=== PATIENT | female | born 1990 | race Caucasian/White ===

== ENCOUNTER 2022-10-05 05:57 | Inpatient (IN) ==
--- NOTE | 2022-09-28 12:26 | Anesthesiology Consultation ---
Date of Service September 28, 2022 Assessment & Plan (1) Encounter for pre-operative examination: Infectious disease screening: Per assessment on 09/28: No known infectious disease contacts or current infectious disease symptoms. 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 History Surgery Operation Date: 10/05/22 08:00 Proposed Procedures p Section in LD - Daniella Mendez MD, PhD s Bilateral Tubal Ligation - Daniella Mendez MD, PhD Height/Weight Height: 4 ft 11 in Weight: 71.214 kg Allergies Allergy/AdvReac Type Severity Reaction Status Date / Time No Known Allergies Allergy Unverified 09/28/22 08:53 Medications Home Medications Medication Instructions Recorded Confirmed Last Taken sertraline 50 mg tablet (Zoloft) 50 mg PO HS 09/28/22 09/28/22 Unknown Past Medical History Medical History (Updated 09/28/22 @ 12:24 by Lidia Michelle) Anemia During Received most recent iron infusion 08/2022 Depression Past Family History Family History Other No family history of adverse response to anesthesia Past Surgical History Surgical History Hx of section Social History Smoking Status: Former smoker Smoking cigarettes per day: quit 9 mos ago Do You Dip or Chew Tobacco: No Hx Alcohol Use: No Hx Substance Use: Yes (Hx marijuana use, last use 04/2022) substance use type: does not use
[2022-10-05] MEDS ORDERED: LIDOCAINE 1% LOCAL 20 ML VIAL INFIL PRN (06:03)
[2022-10-05] MEDS ORDERED: ceFAZolin 2000MG 2,000 MG/15 ML SYR IV STA (06:03)
[2022-10-05] MEDS ORDERED: OXYTOCIN 30 UNITS/500 ML BAG IV PRN (06:03)
[2022-10-05] MEDS: LACTATED RINGER'S 1,000 ML IV PRN ×2 (06:10→07:26)
[2022-10-05 06:37] LABS: Mean Corpuscular Hemoglobin 30.2 pg (25.0-34.0); Mean Corpuscular Hgb Conc 35.3 g/dL (32.0-36.0); Mean Corpuscular Volume 85.6 fL (80.0-100.0); Mean Platelet Volume 11.3 fL (9.4-12.4); Platelet Count 203 K/uL (130-400); RDW Coefficient of Variation 13.5 % (11.5-14.5); RDW Standard Deviation 42.4 fL (36.4-46.3); Red Blood Count 3.97 M/uL (4.20-5.40); White Blood Count 8.81 K/ul (4.8-10.8)
[2022-10-05] MEDS ORDERED: MoRPHine SULFATE PF 1 MG/ML 10 ML AMP/VIAL ONE (07:49)
--- NOTE | 2022-10-05 07:54 | Discharge Summary ---
Date of Service October 05, 2022 Admission HPI Per Admitting Provider Patient is a 31-year-old -0-0-1 at 39 weeks for elective repeat and desires sterilization. Discharge Data Consultations 10/05/22 06:03 Consult Anesthesiology Stat Procedures Performed Operation Date: 10/05/22 08:00 primary LTCS,bilateral salpingectomy Hospital Course (1) delivery delivered: POD #2 pt dong well d/c home with instruction
--- NOTE | 2022-10-05 07:54 | History & Physical Bridge Note ---
Date of Service October 05, 2022 History & Physical Bridge Note I have examined the patient, reviewed the History & Physical and in the interval since the performance of the History & Physical I have noted the following changes of clinical significance: Stopped her zoloft, hasnt taken her PNV in 1 week (after she ran out)
[2022-10-05] MEDS ORDERED: CITRIC ACID/SODIUM CITRATE 15 ML UDC ONE (08:03)
[2022-10-05] MEDS ORDERED: OXYTOCIN 10 UNITS/ML VIAL ONE (08:39)
[2022-10-05] MEDS ORDERED: fentaNYL citrate PF 100 MCG/2 ML VIAL ONE (08:39)
[2022-10-05] MEDS ORDERED: PROMETHAZINE HCL 12.5 MG in SODIUM CHLORIDE 0.9% 50 ML IV PRN (08:51)
[2022-10-05] MEDS ORDERED: HYDROmorphone INJ 0.5 MG/0.5 ML SYR IV PRN (08:51)
[2022-10-05] MEDS ORDERED: NALBUPHINE HCL INJ 10 MG/ML AMP IV PRN (08:51)
[2022-10-05] MEDS ORDERED: MEPERIDINE HCL 25 MG/ML CARP/VIAL IV PRN (08:51)
[2022-10-05] MEDS ORDERED: diphenhydrAMINE 50 MG/ML VIAL IV PRN (08:51)
[2022-10-05] MEDS ORDERED: MoRPHine SULFATE PF 1 MG/ML 10 ML AMP/VIAL INT SPINAL ONE (08:51)
[2022-10-05] MEDS ORDERED: NALOXONE HCL 1 MG in SODIUM CHLORIDE 0.9% 1000ML 1,000 ML IV PRN (08:51)
[2022-10-05] MEDS ORDERED: ePHEDrine sulfate 50 MG/ML AMP IV PRN (08:51)
[2022-10-05] MEDS ORDERED: LACTATED RINGER'S 500 ML IV PRN (08:51)
[2022-10-05] MEDS ORDERED: NALOXONE HCL 0.08 MG in SYRINGE 1.8 ML IV PRN (08:51)
[2022-10-05] MEDS ORDERED: NALOXONE HCL 0.4 MG/1 ML VIAL/CARP IV PRN (08:51)
[2022-10-05] MEDS ORDERED: METOCLOPRAMIDE HCL 10 MG in SODIUM CHLORIDE 0.9% 50 ML IV PRN (08:51)
[2022-10-05] MEDS ORDERED: ePHEDrine sulfate 50 MG/ML SYR ONE (08:58)
[2022-10-05] MEDS: OXYTOCIN 20 UNITS in LACTATED RINGER'S 1,000 ML IV SCH ×2 (09:00→17:09)
[2022-10-05] MEDS ORDERED: MAGNESIUM HYDROXIDE SUSP 30 ML UDC PO PRN (09:00)
[2022-10-05] MEDS ORDERED: SENNA 8.6 MG TAB PO PRN (09:00)
[2022-10-05] MEDS ORDERED: DC INTRASPINAL MORPHINE SCH (09:00)
[2022-10-05] MEDS ORDERED: HYDROCORTISONE ACETATE 25 MG SUPP PR PRN (09:00)
[2022-10-05] MEDS ORDERED: LACTATED RINGER'S 1,000 ML IV SCH (09:00)
[2022-10-05] MEDS ORDERED: SODIUM CHLORIDE 0.9% 1000ML 1,000 ML IV SCH (09:00)
[2022-10-05] MEDS ORDERED: DIPHTHERIA/TETANUS/PERTUSSIS Vaccine (Tdap, Age 7+yrs) 0.5mL SYR/VL IM ONE (09:00)
[2022-10-05] MEDS ORDERED: NO NARCOTICS OR SEDATIVES SCH (09:00)
[2022-10-05] MEDS ORDERED: BENZOCAINE 20% SPRY 85 APPLN/85 GM CAN EXT PRN (09:00)
[2022-10-05] MEDS ORDERED: FAMOTIDINE 20 MG TAB PO PRN (09:06)
--- NOTE | 2022-10-05 09:07 | Operative Report ---
Post Operative Report Pre & Post Diagnosis Operation Date: 10/05/22 08:00 Pre-Op Diagnosis: 1: term 2: previous section, desires repeat 3: desires bilateral tubal ligation Post-Op Diagnosis: Same I identified the patient and participated in the time-out.: Yes Procedure Operation Date: 10/05/22 08:00 Primary lower transverse delivery via Pfannenstiel incision, bilateral salpingectomy Surgeon Daniella Mendez MD, PhD Missile Pad Mechanic Johanna Hart PA-C Estimated Blood Loss 700 Findings Consistent with Post-Op Diagnosis Liveborn female at 0834 nuchal x1 Apgars 8/9. Intact placenta with three-vessel cord. Cord pH not obtained. Weight 2575 g Fluids See anesthesia record Specimens Placenta Bilateral fallopian tubes, left tube tagged Drains Galindo catheter Anesthesia Type Spinal Complications None Disposition Accompanied Patient To Recovery: No Indications Desires elective repeat delivery, desires sterilization Description of Procedure section was recommended. Risks, benefits and alternatives were discussed including but not limited to infection, bleeding that may require blood products or hysterectomy for life saving measures, injury to surrounding organs including but not limited to bowel, bladder, ureters, tubes and ovaries and/or the baby. Should injury occur it could require longer/additional surgery to repair. Patient was also counselled about risk of DVT/PE, and injury to infant during delivery. Additional risk of regret, failure including ectopic were also discussed with patient. The patient stated understanding and desired to proceed. All questions were answered posed by patient. Prior to being taken to the OR, 2 grams of cefazolin IV was administered. The patient was taken to the operating room where regional anesthesia was found to be adequate. Prior to monitors being removed FHR was bpm with no decelerations. She was then prepared and draped in the usual sterile fashion in the dorsal supine position with a leftward tilt displacing the uterus. Galindo was draining to gravity. SCDs were on bilateral lower extremities. A pfannenstiel skin incision was then made with the scalpel and carried through to the underlying layer of fascia. The fascia was incised in the midline and the incision extended laterally with the Villarreal scissors. The superior aspect of the facial incision was then grasped with the Kaycee clamps, elevated and the underlying rectus muscles dissected off bluntly. Attention was then turned to the inferior aspect of this incision which in a similar fashion was grasped, elevated with the Kaycee clamps and the rectus muscle dissected off bluntly. The rectus muscles were in the midline. The peritoneum identified, grasped with the pick-ups and entered sharply with the Metzenbaum scissors. The peritoneal incision was then extended superiorly and inferiorly with good visualization of the bladder. The bladder blade was inserted and the vesicouterine peritoneum was identified, grasped with the pick-ups, and entered sharply with Metzenbaum scissors. This incision was then extended laterally and the bladder flap created digitally and the bladder blade was reinserted. The lower uterine segment was identified and incised in a transverse fashion with the scalpel. The uterine incision was then extended bluntly laterally. Artificial rupture of membranes demonstrated clear fluid. The bladder blade was removed. The fetus was in cephalic presentation. The 's head delivered atraumatically. The anterior shoulders were delivered followed by the posterior shoulders then the remainder of the body. The infant's mouth and nose were bulb suctioned. The umbilical cord was clamped times two and cut. The infant was handed off to the awaiting peds staff. A female was delivered weighing 2575g g with APGARS of 8 at 1 minute and 9 at 5 minutes. The infant was taken to the recovery room for transition. Cord blood gases were obtained. The placenta was removed with gentle traction. 30 units of oxytocin were added to IVF and allowed to run freely. The uterus was exteriorized and cleared of all clots and debris. The uterine incision was inspected and found to be without any extensions and was repaired with 0 Vicryl in a running, locked fashion. A second imbricating layer was performed. Upon inspection, the repaired hysterotomy was found to be hemostatic. Attention was then placed to patient's right fallopian tube and it was followed out to the fimbriated end, and [place] clamps were placed on the fallopian tube. LigaSure device was used to coagulate and cut the right fallopian tube, along the mesosalpinx and cut across the cornual region. Good hemostasis was noted. The same was then performed on the patient's left fallopian tube. Bilateral fallopian tubes were then sent to pathology, left tube was tagged. The uterus was firm and returned to the abdomen. The gutters were cleared of all clots and debris. Jessica powder was placed on the hysterotomy. The fascia was reapproximated with 0 Vicryl in a running fashion. The subcutaneous layer was closed with 2-0 Vicryl in a running fashion. The skin was closed in a subcuticular fashion with 4-0 vicryl. Dermabond and pressure bandage was applied over incision. The patient tolerated the procedure well. Sponge, lap and needle counts were correct x4. The patient was taken to the recovery room in stable condition. Attestation: My Missile Pad Mechanic was necessary throughout the procedure(s) for tissue retraction I understand that section 1842 (b)(7)(D) of the Social Security Act generally prohibits Medicare physician fee schedule payment for the services of [id number] in teaching hospitals when qualified residents are available to furnish such services. I certify that the services for which payment is claimed were medically necessary, and that no qualified resident was available to perform the services. I further understand that these services are subject to post-payment review by the Medicare carrier. I attest to the content of the Intraoperative Record and any orders documented therein. Any exceptions are noted below.
[2022-10-05] MEDS: ONDANSETRON INJ 2 MG/ML 2 ML VIAL IV PRN ×2 (09:21→15:36)
[2022-10-05] MEDS ORDERED: ARISTA ABSORBABLE HEMOSTAT 3GM TOP ONE (09:26)
[2022-10-05] MEDS: KETOROLAC 30 MG/ML VIAL IV PRN ×3 (09:45→21:12)
--- NOTE | 2022-10-05 10:37 | Anesthesiology Progress Note ---
Date of Service October 05, 2022 Anesthesia Post Procedure Vital Signs Vital Signs: Temp Pulse Resp BP Pulse Ox 10/05/22 09:55 18 10/05/22 09:45 18 10/05/22 09:35 18 10/05/22 09:25 18 10/05/22 09:15 18 10/05/22 09:05 36.5 C 16 10/05/22 07:33 37.1 C 18 10/05/22 10:35 76 10/05/22 10:30 99 10/05/22 10:30 62 10/05/22 10:25 98 10/05/22 10:25 64 10/05/22 10:22 57 L 10/05/22 10:22 97/51 L 10/05/22 10:20 98 10/05/22 10:20 65 10/05/22 10:15 97 10/05/22 10:15 60 10/05/22 10:10 97 10/05/22 10:10 59 L 10/05/22 10:08 91 10/05/22 10:08 73 10/05/22 10:05 99 10/05/22 10:05 65 10/05/22 10:00 99 10/05/22 10:00 61 10/05/22 09:57 78 10/05/22 09:57 120/55 L 10/05/22 09:55 100 10/05/22 09:55 60 10/05/22 09:50 99 10/05/22 09:50 61 10/05/22 09:46 56 L 10/05/22 09:46 96/53 L 10/05/22 09:45 99 10/05/22 09:45 69 10/05/22 09:40 100 10/05/22 09:40 74 10/05/22 09:35 100 10/05/22 09:35 77 10/05/22 09:36 65 10/05/22 09:36 104/59 L 10/05/22 09:30 100 10/05/22 09:30 73 10/05/22 09:26 74 10/05/22 09:26 116/60 10/05/22 09:25 100 10/05/22 09:25 79 10/05/22 09:20 100 10/05/22 09:20 95 H 10/05/22 09:17 133 H 10/05/22 09:17 129/72 10/05/22 09:15 100 10/05/22 09:15 132 H 10/05/22 09:10 100 10/05/22 09:10 84 10/05/22 09:05 100 10/05/22 09:05 77 10/05/22 09:06 79 10/05/22 09:06 113/64 10/05/22 06:11 93 H 123/73 Pain Intensity Abdomen: Pain Intensity: 4 Transfer of Care Handoff Completed per policy Notes Mental Status: alert / awake / arousable and participated in evaluation Nausea / Vomiting: adequately controlled Pain: adequately controlled Airway Patency, RR, SpO2: stable & adequate BP & HR: stable & adequate Hydration State: stable & adequate Neuraxial Anesthesia: was administered and sensory block is resolving Anesthetic Complications: no major complications apparent and Pt Satisfied with anesthetic care
[2022-10-05] MEDS ORDERED: LACTATED RINGER'S 1,000 ML IV ONE ×2 (11:26→13:58)
[2022-10-05] MEDS: SIMETHICONE 80 MG CHEW PO SCH ×3 (13:33→21:12)
[2022-10-05 14:48] LABS: Basophils # (auto) 0.02 K/uL (0.00-0.20); Basophils % (auto) 0.2 %; Eosinophils # (auto) 0.01 K/uL (0.00-0.50); Eosinophils % (auto) 0.1 %; Hematocrit (blood only) 30.9 % (37.0-47.0); Hemoglobin 10.8 g/dl (12.0-16.0); Immature Granulocytes # (auto) 0.06 K/uL (0.01-0.20); Immature Granulocytes % (auto) 0.5 %; Lymphocytes # (auto) 1.08 K/uL (1.20-3.40); Lymphocytes % (auto) 8.4 %; Mean Corpuscular Hemoglobin 30.5 pg (25.0-34.0); Mean Corpuscular Volume 87.3 fL (80.0-100.0); Mean Platelet Volume 11.5 fL (9.4-12.4); Monocytes # (auto) 0.71 K/uL (0.11-0.59); Monocytes % (auto) 5.5 %; Neutrophils # (auto) 11.05 K/uL (1.40-6.50); Neutrophils % (auto) 85.3 %; Platelet Count 167 K/uL (130-400); RDW Coefficient of Variation 13.5 % (11.5-14.5); RDW Standard Deviation 43.1 fL (36.4-46.3); Red Blood Count 3.54 M/uL (4.20-5.40); White Blood Count 12.93 K/ul (4.8-10.8)
[2022-10-05 15:06] LABS: Albumin Globulin Ratio 1.8 (0.9-2); Albumin Level 3.1 gm/dl (3.4-5.0); BUN Creatinine Ratio 11.1 (10-20); Bilirubin,Total 0.4 mg/dl (0.2-1.0); Calcium 8.4 mg/dl (8.6-10.3); Creatinine Clr Calc Pharmacy 112.1 ml/min; Est GFR (African American) 139.5 ml/min; Est GFR (Non-African American) 120.4 ml/min; Globulin 1.7 gm/dl (2.5-4.0); Potassium 3.7 mmol/L (3.5-5.1); Total Protein 4.8 gm/dl (6.0-8.3)
[2022-10-05] MEDS: DOCUSATE SODIUM 100 MG CAP PO SCH (21:12)
[2022-10-05] MEDS: SERTRALINE HCL 50 MG TABLET PO SCH (21:13)
[2022-10-06] MEDS ORDERED: PROMETHAZINE HCL 25 MG in SODIUM CHLORIDE 0.9% 50 ML IV PRN (02:52)
[2022-10-06] MEDS ORDERED: diphenhydrAMINE Capsule 25 MG CAP PO PRN (02:52)
[2022-10-06] MEDS ORDERED: ONDANSETRON INJ 2 MG/ML 2 ML VIAL IV PRN (02:52)
[2022-10-06] MEDS ORDERED: diphenhydrAMINE 50 MG/ML VIAL IV PRN (02:52)
[2022-10-06] MEDS ORDERED: MEPERIDINE HCL 50 MG/ML CARP IV PRN (02:52)
[2022-10-06] MEDS ORDERED: KETOROLAC 30 MG/ML VIAL IV PRN (02:52)
[2022-10-06] MEDS: oxyCODONE/ACETAMINOPHEN 5mg/325mg TAB PO PRN ×5 (03:32→20:41)
[2022-10-06] MEDS: DOCUSATE SODIUM 100 MG CAP PO SCH ×2 (08:38→20:40)
[2022-10-06] MEDS: SIMETHICONE 80 MG CHEW PO SCH ×4 (08:38→20:40)
[2022-10-06] MEDS: IBUPROFEN 600 MG TAB PO PRN ×3 (08:38→16:49)
[2022-10-06] MEDS: PRENATAL VITAMIN 1 TAB PO SCH (08:38)
[2022-10-06] MEDS: FERROUS SULFATE 325 MG TAB PO SCH (08:38)
[2022-10-06 09:26] LABS: Basophils # (auto) 0.03 K/uL (0.00-0.20); Basophils % (auto) 0.4 %; Eosinophils # (auto) 0.16 K/uL (0.00-0.50); Eosinophils % (auto) 2.1 %; Hematocrit (blood only) 30.3 % (37.0-47.0); Hemoglobin 10.3 g/dl (12.0-16.0); Immature Granulocytes # (auto) 0.05 K/uL (0.01-0.20); Immature Granulocytes % (auto) 0.6 %; Lymphocytes # (auto) 1.62 K/uL (1.20-3.40); Mean Corpuscular Hemoglobin 30.4 pg (25.0-34.0); Mean Corpuscular Volume 89.4 fL (80.0-100.0); Mean Platelet Volume 11.6 fL (9.4-12.4); Monocytes # (auto) 0.54 K/uL (0.11-0.59); Neutrophils # (auto) 5.32 K/uL (1.40-6.50); Neutrophils % (auto) 68.9 %; Platelet Count 161 K/uL (130-400); RDW Coefficient of Variation 13.7 % (11.5-14.5); RDW Standard Deviation 44.9 fL (36.4-46.3); Red Blood Count 3.39 M/uL (4.20-5.40); White Blood Count 7.72 K/ul (4.8-10.8)
--- NOTE | 2022-10-06 09:27 | Obstetrical Progress Note ---
Date of Service October 06, 2022 Assessment & Plan Admission and Anticipated Discharge Date Admission Date: October 05, 2022 Subjective Patient is seen and examined. She feels well, no complaints. Pain is under control with oral meds. Ambulating without dizziness Has not Voided yet. Tolerating regular diet with out N&V Flatus + BM neg Bleeding is minimal No fever/ chills/ CP/ SOB/ N&V/ Leg pain Breast and bottle feeding without problems Vital Signs Temp Pulse Resp BP Pulse Ox O2 Del Method 10/06/22 03:34 36.5 C 65 16 107/65 95 Room Air 10/06/22 02:03 16 95 10/06/22 01:14 16 95 10/06/22 00:32 16 95 10/05/22 23:15 16 96 10/05/22 23:15 36.7 C 81 16 103/67 96 Room Air 10/05/22 22:07 16 97 Lab Results 10/05/22 10/05/22 10/05/22 Range/Units 06:17 06:17 14:24 WBC 8.81 12.93 H (4.8-10.8) K/ul RBC 3.97 L 3.54 L (4.20-5.40) M/uL Hgb 12.0 10.8 L (12.0-16.0) g/dl Hct 34.0 L 30.9 L (37.0-47.0) % MCV 85.6 87.3 (80.0-100.0) fL MCH 30.2 30.5 (25.0-34.0) pg MCHC 35.3 35.0 (32.0-36.0) g/dL RDW Std Deviation 42.4 43.1 (36.4-46.3) fL RDW Coeff of Pavel 13.5 13.5 (11.5-14.5) % Plt Count 203 167 (130-400) K/uL MPV 11.3 11.5 (9.4-12.4) fL Immature Gran % (Auto) 0.5 % Neut % (Auto) 85.3 % Lymph % (Auto) 8.4 % Leslie % (Auto) 5.5 % Eos % (Auto) 0.1 % Baso % (Auto) 0.2 % Neut # (Auto) 11.05 H (1.40-6.50) K/uL Lymph # (Auto) 1.08 L (1.20-3.40) K/uL Leslie # (Auto) 0.71 H (0.11-0.59) K/uL Eos # (Auto) 0.01 (0.00-0.50) K/uL Baso # (Auto) 0.02 (0.00-0.20) K/uL Immature Gran # (Auto) 0.06 (0.01-0.20) K/uL Sodium (136-145) mmol/L Potassium (3.5-5.1) mmol/L Chloride (98-107) mmol/L Carbon Dioxide (21-32) mmol/L Anion Gap (3-11) BUN (6-23) mg/dl Creatinine (0.6-1.2) mg/dl Est Cr Clr Drug Dosing ml/min Est GFR ( Amer) ml/min Est GFR (Non-Af Amer) ml/min BUN/Creatinine Ratio (10-20) Glucose (70-99(Fasting)) mg/dl Calcium (8.6-10.3) mg/dl Total Bilirubin (0.2-1.0) mg/dl AST (13-39) U/L ALT (7-52) U/L Alkaline Phosphatase (34-104) U/L Total Protein (6.0-8.3) gm/dl Albumin (3.4-5.0) gm/dl Globulin (2.5-4.0) gm/dl Albumin/Globulin Ratio (0.9-2) Blood Type A Positive Antibody Screen NEGATIVE 10/05/22 10/06/22 Range/Units 14:24 08:34 WBC 7.72 (4.8-10.8) K/ul RBC 3.39 L (4.20-5.40) M/uL Hgb 10.3 L (12.0-16.0) g/dl Hct 30.3 L (37.0-47.0) % MCV 89.4 (80.0-100.0) fL MCH 30.4 (25.0-34.0) pg MCHC 34.0 (32.0-36.0) g/dL RDW Std Deviation 44.9 (36.4-46.3) fL RDW Coeff of Pavel 13.7 (11.5-14.5) % Plt Count 161 (130-400) K/uL MPV 11.6 (9.4-12.4) fL Immature Gran % (Auto) 0.6 % Neut % (Auto) 68.9 % Lymph % (Auto) 21.0 % Leslie % (Auto) 7.0 % Eos % (Auto) 2.1 % Baso % (Auto) 0.4 % Neut # (Auto) 5.32 (1.40-6.50) K/uL Lymph # (Auto) 1.62 (1.20-3.40) K/uL Leslie # (Auto) 0.54 (0.11-0.59) K/uL Eos # (Auto) 0.16 (0.00-0.50) K/uL Baso # (Auto) 0.03 (0.00-0.20) K/uL Immature Gran # (Auto) 0.05 (0.01-0.20) K/uL Sodium 136 (136-145) mmol/L Potassium 3.7 (3.5-5.1) mmol/L Chloride 108 H (98-107) mmol/L Carbon Dioxide 22 (21-32) mmol/L Anion Gap 6 (3-11) BUN 7 (6-23) mg/dl Creatinine 0.63 (0.6-1.2) mg/dl Est Cr Clr Drug Dosing 112.1 ml/min Est GFR ( Amer) 139.5 ml/min Est GFR (Non-Af Amer) 120.4 ml/min BUN/Creatinine Ratio 11.1 (10-20) Glucose 85 (70-99(Fasting)) mg/dl Calcium 8.4 L (8.6-10.3) mg/dl Total Bilirubin 0.4 (0.2-1.0) mg/dl AST 14 (13-39) U/L ALT 8 (7-52) U/L Alkaline Phosphatase 86 (34-104) U/L Total Protein 4.8 L (6.0-8.3) gm/dl Albumin 3.1 L (3.4-5.0) gm/dl Globulin 1.7 L (2.5-4.0) gm/dl Albumin/Globulin Ratio 1.8 (0.9-2) Blood Type Antibody Screen PE: General: Alert, orientedx3, NAD CVS: S1S2 RRR Lungs; CTAB Abd: soft, NT, ND, BS+, fundus firm, below Umbilicus Incision/ : Clean, dry, intact Perineum intact, Lochia rubra minimal Ext; NT, no edema AP: 31 yo s/p C Section, pod# 1 VSS Afebrile doing well Continue routine postop care Encourage ambulation, PO intake All questions were answered Results & Data Vital Signs (Past 12 Hours) Vital Signs Temp Pulse Resp BP Pulse Ox O2 Del Method 10/06/22 03:34 36.5 C 65 16 107/65 95 Room Air 10/06/22 02:03 16 95 10/06/22 01:14 16 95 10/06/22 00:32 16 95 10/05/22 23:15 16 96 10/05/22 23:15 36.7 C 81 16 103/67 96 Room Air 10/05/22 22:07 16 97
[2022-10-06 09:42] LABS: Albumin Globulin Ratio 1.4 (0.9-2); BUN Creatinine Ratio 7.7 (10-20); Bilirubin,Total 0.4 mg/dl (0.2-1.0); Calcium 8.3 mg/dl (8.6-10.3); Creatinine Clr Calc Pharmacy 108.7 ml/min; Est GFR (African American) 138.1 ml/min; Est GFR (Non-African American) 119.1 ml/min; Globulin 2.1 gm/dl (2.5-4.0); Potassium 3.9 mmol/L (3.5-5.1); Total Protein 5.1 gm/dl (6.0-8.3)
[2022-10-06] MEDS ORDERED: bisacodyL 5 MG TABEC PO SCH (20:00)
[2022-10-06] MEDS: SERTRALINE HCL 50 MG TABLET PO SCH (20:42)
[2022-10-06 23:18] VITALS: TEMP 97.7; O2SAT 98
[2022-10-07] MEDS: oxyCODONE/ACETAMINOPHEN 5mg/325mg TAB PO PRN ×3 (05:11→13:07)
[2022-10-07] MEDS: IBUPROFEN 600 MG TAB PO PRN ×3 (05:11→13:07)
[2022-10-07 06:53] LABS: Hematocrit (blood only) 27.5 % (37.0-47.0); Hemoglobin 9.2 g/dl (12.0-16.0)
[2022-10-07] MEDS ORDERED: bisacodyL 10 MG SUPP PR PRN (09:01)
[2022-10-07] MEDS: PRENATAL VITAMIN 1 TAB PO SCH (09:10)
[2022-10-07] MEDS: SIMETHICONE 80 MG CHEW PO SCH ×2 (09:10→13:06)
[2022-10-07] MEDS: FERROUS SULFATE 325 MG TAB PO SCH (09:11)
[2022-10-07] MEDS: DOCUSATE SODIUM 100 MG CAP PO SCH (09:11)
[2022-10-07 09:42] VITALS: BP 123/82; PULSE 77
--- NOTE | 2022-10-07 09:47 | Obstetrical Progress Note ---
Date of Service October 07, 2022 Assessment & Plan (1) delivery delivered: POD #2 pt ria well d/c home with instruction Subjective Ambulation: ambulating normally Voiding: no voiding problems Passing Gas:: Yes Diet Tolerance:: clear liquids Lochia:: Small Feeding Type:: breast feeding Review of Systems All systems reviewed & are unremarkable except as noted in HPI & below Physical Exam Constitutional WD/WN, vitals as above well developed and well nourished Eyes PERRL, conjunctivae normal, anicteric sclerae ENMT external ear and nose normal, oropharynx normal Neck trachea midline, no thyromegaly Respiratory normal respiratory effort, lungs clear to auscultation Cardiovascular RRR, no murmur, no edema Chest (Breasts) normal inspection/palpation of breasts Gastrointestinal (Abdomen) normal bowel sounds, soft, nontender, no hepatosplenomegaly Musculoskeletal no cyanosis or clubbing, extremities motor strength 5/5 Skin no rashes, warm and dry + incision (Clean,dry and intact) Neurologic patellar DTR's 2+ bilat, sensation intact Psychiatric A+Ox3, euthymic affect Genitourinary normal external appearance Lymphatic no cervical or axillary lymphadenopathy Results & Data Vital Signs (Past 12 Hours) Vital Signs Temp Pulse Pulse Resp BP Pulse Ox O2 Del Method 10/07/22 09:10 36.5 C 77 16 123/82 98 Room Air 10/06/22 23:00 36.5 C 59 L 16 124/80 98 Room Air
== END 2022-10-07 15:00 | disposition home or self-care (01) | DRG 785 ==
LOC: 4S1 05:57 → EDSTATUS 07:30 → 4S3 11:54 → 4E2 11:55
PROC: M.PPTLD (2022-10-05 08:00)